=== PATIENT | male | born 1985 | race African-American/Black ===

== ENCOUNTER 2016-11-08 01:15 | Emergency (ER) | payer BC ==
[2016-11-08 01:52] LABS: URINE SOURCE CLEAN CATCH
[2016-11-08 01:57] LABS: URINE APPEARANCE CLEAR; URINE BILIRUBIN NEG (NEG); URINE BLOOD NEG (NEG); URINE COLOR YELLOW; URINE GLUCOSE NEG (NEG); URINE KETONE TRACE (NEG); URINE LEUKOCYTE ESTERASE NEG (NEG); URINE NITRATE NEG (NEG); URINE PH 5.5 (5-8); URINE PROTEIN NEG (NEG); URINE SPECIFIC GRAVITY 1.029 (1.003-1.035)
[2016-11-08 02:13] LABS: CULTURE INDICATED? NO
[2016-11-12 00:02] LABS: CHLAMYDIA TRACH Not Detected (Not Detected); N GONOR Not Detected (Not Detected)
== END 2016-11-08 02:40 | disposition home or self-care (01) ==
LOC: CED 01:15
PROVIDERS: Nurse Practitioner
DX: A56.8 Sexually transmitted chlamydial infection of other sites (principal); F17.210 Nicotine dependence, cigarettes, uncomplicated; Z91.030 Bee allergy status
CPT/HCPCS: 81003; 87491; 87591; 96372; 99283; J0696